=== PATIENT | male | born 1970 | race Caucasian/White ===

== ENCOUNTER 2025-04-24 21:35 | Emergency (ER) | payer OTHER, SELFPAY ==
[2025-04-24 21:39] VITALS: BP 143/73
[2025-04-24 22:05] LABS: Hematocrit 43.1 % (39.0-52.0); Hemoglobin 14.9 g/dL (13.0-18.0); Mean Corp Hgb Conc. 34.6 g/dL (33.0-37.0); Mean Corpuscular Volume 84.0 fL (80.0-94.0); Nucleated Red Blood Cells % 0 % (-); Platelet Count 195 10^3/uL (130-400); Red Cell Dist. Width 12.4 % (11.5-14.5)
[2025-04-24 22:20] LABS: ALT (SGPT) 48 U/L (0-50); AST (SGOT) 29 U/L (17-59); Albumin 4.9 g/dl (3.5-5.0); Alkaline Phosphatase 57 U/L (38-126); Blood Urea Nitrogen 21 mg/dl (9-20); Calcium 9.7 mg/dl (8.4-10.2); Carbon Dioxide 24 mmol/L (22-30); Chloride 106 mmol/L (98-107); Glucose 111 mg/dl (70-99); Potassium 3.9 mmol/L (3.5-5.1); Sodium 139 mmol/L (135-145); Total Protein 7.9 g/dl (6.3-8.2); eGFR > 60.00
[2025-04-24 22:29] LABS: Troponin I < 0.012 ng/ml
--- NOTE | 2025-04-25 00:37 | ED.GENMED ---
History of Present Illness
General
Chief Complaint: Chest Pain
Source: patient
Exam Limitations: none
Time Seen by Provider: 04/25/25 00:23
Nursing documentation reviewed up to this point in time: agreed with
History of Present Illness
History of Present Illness:
The patient is a 54-year-old male who presents with chest pain that began approximately four days ago. The pain occurs intermittently and is mid to upper substernal in nature and described as worsening when the patient bends over, takes a deep
breath, and is not influenced by eating. The patient denies nausea, burping, shortness of breath, sweating, or cough. He has had no palpitations, no dizziness nor lightheadedness. No fever. No abdominal nor back nor neck pain. No weakness or
numbness. He denies leg pain or swelling.
There is a history of atrial fibrillation, with a successful ablation performed in September 2022, and no noted recurrences or palpitations since then.
He has history of borderline hypertension. The patient reports checking his blood pressure at home, generally averaging 120/80 mmHg, but noted an elevation to 140 mmHg today, which he attributes to the current discomfort. He does not regularly take
his prescribed Valsartan 80 mg but he took a dose today at 4 PM.
He took a dose of his 's omeprazole 40 mg this evening. Thus far no improvement.
Other than this he takes no medicines on a daily basis.
No recent travel.
No history of similar episodes of chest pain in the past.
Past History
Past History
ED Past Medical History: Arrthythmia (Atrial fibrillation status post ablation 2022) and HTN (Borderline hypertension)
ED Past Surgical History: Cardiac (A-fib ablation September 2022)
Social History
Tobacco: Non-smoker
Alcohol: None
Drug: None
Living: with family
Family History
Family History: Hypertension
Phy Exam
Physical Exam
Physical Exam:
General: Alert, no acute distress.
Skin: Warm, dry. No rash.
Head: Normocephalic, atraumatic.
Neck: Supple, trachea midline.
Eye, Ears, Nose, Mouth and Throat: Oral mucosa moist.
Cardiovascular: Normal peripheral perfusion, No edema. Regular rate and rhythm. No murmur nor rub. No palpable chest wall tenderness.
Respiratory: Respirations are non-labored.
Gastrointestinal: Abdomen nondistended.
Back: Normal range of motion, Normal alignment.
Musculoskeletal: Normal range of motion, normal strength.
Neurological: Alert and oriented to person, place, time, and situation, No focal neurological deficit observed.
Psychiatric: Cooperative, appropriate mood & affect.
Scores
Heart Score for Chest Pain Patients
STEMI patient?: No
History: Slightly or Non-Suspicious
ECG: Normal
Age: >45 - <65 years
Risk Factors: 1 or 2 Risk Factors
Troponin: </= Normal Limit
Heart Score for Chest Pain Patients: 2
Heart Score Risk: 2.5% MACE over next 6 weeks
Course
Orders/Labs/Results
Orders:
Orders
04/24/25 21:38
ECG [Electrocardiogram (*1)] Urgent
Reason for Study: Chest Pain
04/24/25 21:39
EKG- Treatment ONCE
04/24/25 21:43
CXR2 [CR Chest - 2 Views ] Urgent
Comment:
Reason For Exam: pain
04/24/25 21:59
Complete Blood Count/With Diff Urgent
Comprehensive Metabolic Panel Urgent
Troponin I Urgent
04/25/25 00:37
Mag Hydrox/Al Hydrox/Simeth [Maalox] 30 ml Phenobarb/Hyoscy/Atropine/Scop [] 10 ml Viscous Lidocaine 2% [Xylocaine Viscous Cup] 10 ml PO NOW
04/25/25 01:16
Mag Hydrox/Al Hydrox/Simeth [Maalox] 30 ml .ROUTE .STK-MED ONE
Phenobarb/Hyoscy/Atropine/Scop [] 10 ml .ROUTE .STK-MED ONE
Viscous Lidocaine 2% [Xylocaine Viscous Cup] 15 ml .ROUTE .STK-MED ONE
Abnormal Lab Results
04/24/25
21:59
WBC 12.0 H 10^3/uL
(4.8-10.8)
Absolute Neuts (auto) 8.7 H 10^3/uL
(1.4-6.5)
Absolute Monos (auto) 1.2 H 10^3/uL
(0.1-0.6)
Lymphocytes % 16.1 L %
(20.5-51.1)
Monocytes % 9.9 H %
(1.7-9.3)
BUN 21 H mg/dl
(9-20)
Glucose 111 H mg/dl
(70-99)
04/24/25 21:59
04/24/25 21:59
Vital Signs
Initial and Last Documented VS:
Initial Vital Signs
Temp Pulse Resp BP Pulse Ox
98.5 F 95 16 143/73 98
04/24/25 21:39 04/24/25 21:39 04/24/25 21:39 04/24/25 21:39 04/24/25 21:39
Last Documented Vital Signs
Temp Pulse Resp BP Pulse Ox
98.5 F 95 16 143/73 98
04/24/25 21:39 04/24/25 21:39 04/24/25 21:39 04/24/25 21:39 04/25/25 00:47
MDM/Problems Addressed
Differential Diagnosis Includes:
The Differential Diagnosis includes, in no particular order and is not limited to:
1. Musculoskeletal chest wall pain
2. Gastroesophageal reflux disease (GERD)
3. Esophageal spasm
4. Costochondritis
5. Pleurisy
6. Atypical angina
7. Anxiety-related chest pain
8. Pulmonary embolism (unlikely given the absence of risk factors and symptoms)
9. Pericarditis
10. Peptic ulcer disease
MDM/Problems Addressed:
Intermittent substernal chest pain for the past 4 days.
Minimally elevated blood pressure with history of hypertension. Noncompliance with valsartan.
EKG is unremarkable, normal sinus rhythm, normal axis, normal intervals, no acute ST-T wave abnormalities.
Chest x-ray is unremarkable. Clear lung ann. Normal heart size.
Labs are unremarkable save for minimally elevated white blood cell count of 12.0. Unremarkable chemistries and troponin is negative.
With ongoing chest discomfort over the past 4 days, unremarkable EKG and negative troponin, ACS is doubtful.
No risk factors for thromboembolism/PE and patient denies shortness of breath, denies exertional chest discomfort thus PE is doubtful as well.
PLAN:
Administer a gastrointestinal cocktail, which includes an antacid with viscous lidocaine and an anticholinergic agent to coat the esophagus and potentially alleviate discomfort. If there is improvement, continue with Omeprazole and assess for
potential esophageal irritation. If no improvement, consider alternative pain management with non-steroidal anti-inflammatory drugs. Recommend follow-up with primary care physician and agricultural technician, especially if symptoms persist.
Chronic conditions affecting care: HTN and Arrhythmia
*Radiology
Radiology exam reviewed: preliminary read by ED provider (Chest x-ray is unremarkable. Clear lung ann. Normal heart size. No old films to compare.)
*Pulse Oximetry
SaO2: 98
Oxygen Mode of Delivery: Room air
Patient hypoxic: no
*EKG
Interpreted by ED Provider?: Yes
Interpretation: normal
Comparison EKG: no comparison EKG present
Rate: normal
Rhythm: sinus
[place]: normal axis
Interval: normal interval
QRS Pattern: normal QRS
Ischemia: no ischemia
*Creping Machine Operator Helper Interpretation
Rate: normal
Interpretation: normal
Rhythm: sinus
*Critical Care Note
Total Time (30-74mins, 75-104mins- exclusive of procedures): Not Applicable
Update Note
Update Note:
02:00
Patient feeling markedly improved after GI cocktail. Relief of chest pain, resting comfortably.
As above, highly suspect GERD/esophagitis.
Will initiate a course of once daily omeprazole and will prescribe Carafate for as needed chest discomfort.
Recommend bland diet, avoiding caffeine, spicy or fried foods, alcohol.
Prompt follow-up with PCP for recheck.
ED Attending Note
-
Portions of this chart may have been created with voice recognition software.� Occasional wrong word or��sound alike� substitutions may have occurred due to the inherent limitations of voice recognition software.
Discharge Plan
Departure
Patient Disposition: Home (Routine Discharge)
Date of Disposition: 04/25/25
Time of Disposition: 01:58
Patient with high blood pressure during this ER visit?: No
Condition: Good
Discharge Problem:
acute GERD with esophagitis
Instructions: Acid Reflux and GERD in Adults (DC)
Prescriptions:
New
omeprazole 40 mg capsule,delayed release(DR/EC)
40 mg PO DAILY Qty: 30 0RF
sucralfate [Carafate] 100 mg/mL suspension
10 ml PO QID PRN (Reason: chest pain) Qty: 240 0RF
Referrals:
Clay Solo DO [Family Provider] - Call in 1-3 days for appt
Interventions
Interventions:
*Risk Screen - Suicide Last Done: 04/24/25 21:39
*Neglect/Abuse Screening Last Done: 04/24/25 21:39
*ED- Fall Risk Assessment Last Done: 04/24/25 21:39
Discharge Date and Time
Print Language: FAROESE
[2025-04-25] MEDS: MAALOX 50 PO (01:18)
== END 2025-04-25 02:10 | disposition home or self-care (01) ==
LOC: EMR 21:35
PROVIDERS: Emergency Medicine; EMERGENCY PHYSICIAN Emergency Medicine; FAMILY PHYSICIAN Family Medicine
DX: K21.00 Gastro-esophageal reflux disease with esophagitis, without bleeding (principal); I48.91 Unspecified atrial fibrillation; I10 Essential (primary) hypertension; Z82.49 Family history of ischemic heart disease and other diseases of the circulatory system; Z91.199 Patient's noncompliance with other medical treatment and regimen due to unspecified reason
CPT/HCPCS: 99283; 71046; 80053; 84484; 85025; 93005